=== PATIENT | female | born 1995 | race African-American/Black ===

== ENCOUNTER 2020-01-12 17:40 | Emergency (ER) | payer OTHER, SELFPAY ==
[2020-01-12 17:52] VITALS: BP 134/93; PULSE 92; RESP 12; TEMP 36.9; O2SAT 100
--- NOTE | 2020-01-12 18:17 | ED.GENADULT ---
HPI - General Adult General Chief complaint: Extremity Injury, Lower Stated complaint: lt leg pain/injury Time Seen by Provider: 01/12/20 18:18 Source: patient and RN notes reviewed Mode of arrival: ambulatory Limitations: no limitations History of Present Illness HPI narrative: 24-year-old -[place] female presents with complaints of left lower leg and ankle swelling for the past 7 days. Shania says she injured LT calf and lower leg on 01/05/20 when she fell and landed on it with leg folded under it. Since fall swelling and pain has been present up until yesterday, in which pain improved with Ibuprofen. Ibuprofen 600mg (was taking T.I.D.) until today, last dose this morning at 10:30. Shania believes swelling in LT ankle has increased over the past 24-48 hours. She says she has been packing and moving around more during this time since leg has improved. Elevation and ice with some relief. Improvement with ambulation per Shania over the past 24 hours. No redness, fever, or chills. No exacerbating factors. Denies dysuria, hematuria, and genital bleeding. No blood in stool or constipation. No cough or dyspnea. Denies chest pain, back pain, headache, and dizziness. No recent travel, long car rides. No history of DVT or PE. No foot ulceration of injury. The patient reports he have not been diagnosed with COVID-19. The patient reports he is not waiting for the results of a COVID-19 lab test. The patient reports he do not have fever, chills, weakness, or fatigue. The patient reports he do not have a new or worsening cough or shortness of breath. Denies chest pain. The patient reports he do not have any rhinorrhea, congestion, sore throat, loss of taste, nausea, vomiting, and diarrhea. Tolerating po intake well. Denies recent traveling. Denies concerns for COVID-19 or exposures been home since [id number] order except for essential household needs and return home. At this time, patient is not suspected of having COVID-19. Some parts of this dictation were generated by voice recognition software and may contain typographical and/or grammatical inaccuracies. Related Data Home Medications Medication Instructions Recorded Confirmed norgestimate-ethinyl estradiol tablet 01/12/20 [Sprintec (28)] Allergies Allergy/AdvReac Type Severity Reaction Status Date / Time No Known Allergies Allergy Verified 01/12/20 17:51 Review of Systems Review of Systems: Narrative: CONSTITUTIONAL: Denies fever, chills, sweats. EYES: Denies visual changes, redness, discharge. ENT: Denies rhinorrhea, congestion, sore throat, otalgia. CARDIOVASCULAR: Denies chest pain, palpitations, edema. RESPIRATORY: Denies dyspnea, wheezing, cough. GASTROINTESTINAL: Denies abdominal pain, nausea, vomiting, diarrhea. GENITOURINARY: Denies dysuria, hematuria, abnormal discharge. SKIN: Denies rash or itching. MUSCULOSKELETAL: Denies acute back pain or myalgia. Complains of left lower leg and ankle swelling. NEUROLOGIC: Denies numbness or focal weakness. PSYCHIATRIC: Denies anxiety or depression. All other systems reviewed are negative, except as documented in HPI and below. [facility] Past Medical History Medical History (Updated 01/14/20 @ 01:03 by KENDALL Berry) History of lumbar puncture Low folic acid Surgical History Surgical History (Updated 01/14/20 @ 01:04 by KENDALL Berry) No significant past surgical history Family History Family History (Updated 01/14/20 @ 01:06 by KENDALL Berry) Father Unknown family medical history Mother Asthma Heart disease Hypothyroidism Social History Social History (Updated 01/14/20 @ 01:07 by KENDALL Berry) Smoking status: Former smoker Tobacco type: cigarettes Second hand tobacco smoke exposure: Yes (marijuana) Alcohol intake: current Substance use: never Living arrangements: with family Occupation/Education: occupation Gender identity (i
== END 2020-01-12 18:42 | disposition home or self-care (01) ==
PROVIDERS: Emergency Provider Nurse Practitioner Family
DX: S96.912A Strain of unspecified muscle and tendon at ankle and foot level, left foot, initial encounter (principal); S86.912A Strain of unspecified muscle(s) and tendon(s) at lower leg level, left leg, initial encounter; W19.XXXA Unspecified fall, initial encounter; Z87.891 Personal history of nicotine dependence
CPT/HCPCS: 99203; G0463

== ENCOUNTER 2020-01-18 17:07 | Emergency (ER) | payer OTHER, SELFPAY ==
--- NOTE | ~2020-01-18 | XR_ITS ---
EXAMINATION: XR tibia fibula LT 2V EXAM DATE: 01/18/2020 19:32 INDICATION: Fall, proximal tibial pain for 2 weeks. Initial encounter. TECHNIQUE: Left tibia/fibula frontal and lateral projections obtained and reviewed. There is no prio r study for comparison. FINDINGS: Left tibial and fibular shafts unremarkable. No periosteal reaction to suggest subacute fr acture. There are no acute fractures or dislocations identified. There is no subcutaneous gas. T he soft tissue is unremarkable. There are no radiopaque foreign bodies. IMPRESSION: 1. Unremarkable left tibia/fibula exam. Reviewed, dictated and finalized at location A.
[2020-01-18 18:04] VITALS: BP 146/106; PULSE 102; RESP 16; TEMP 36.2; O2SAT 100
[2020-01-18 19:31] VITALS: BP 142/97; PULSE 99; RESP 16; O2SAT 99
[2020-01-18 19:51] LABS: Prothrombin Time 13.1 Seconds (11.1-14.7)
[2020-01-18 19:52] LABS: Partial Thromboplastin Time 26.1 SECONDS (22.3-36.8)
[2020-01-18 19:53] LABS: Anion Gap 8 mmol/L (8-16); Blood Urea Nitrogen 12 mg/dL (7-17); Carbon Dioxide 25 mmol/L (22-30); Chloride 104 mmol/L (98-107); Estimated CRCL calculation 136 ml/min; Estimated Glomerular Filt Rate > 60; Glucose 97 mg/dL (65-105); Potassium 4.3 mmol/L (3.4-5.0); Sodium 137 mmol/L (137-145)
[2020-01-18 20:08] LABS: D Dimer 8.62 ug/mL (<0.48)
[2020-01-18 20:23] LABS: Basophils Percent Auto 0.3 % (0.2-1.2); Eosinophils Absolute Auto 0.3 K/mm3 (0-0.3); Eosinophils Percent Auto 4.5 % (0-4.4); Hematocrit 37.9 % (37.0-47.0); Hemoglobin 12.6 g/dL (12.0-15.0); Immature Granulocyte Absolute 0.03 K/mm3 (0.00-0.031); Immature Granulocyte Percent A 0.4 % (0-0.5); Lymphocytes Absolute Auto 2.57 K/mm3 (0.9-3.2); Lymphocytes Percent Auto 35.8 % (18.3-44.2); Mean Corpuscular HGB Conc 33.2 g/dl (32-36); Mean Corpuscular Hemoglobin 28.9 pg (26-34); Mean Corpuscular Volume 86.9 fl (80-100); Mean Platelet Volume 9.7 fl (7.4-10.4); Monocytes Absolute Auto 0.4 K/mm3 (0.1-0.6); Monocytes Percent Auto 5.4 % (2.6-8.5); Neutrophils Absolute Auto 3.8 K/mm3 (1.3-6.7); Neutrophils Percent Auto 53.6 % (45.5-73.1); Platelet Count Result 210 k/mm3 (150-375); Red Blood Count 4.36 M/mm3 (4.2-5.4); Red Cell Distribution Width 12.9 % (11.5-14.5); White Blood Count 7.2 K/mm3 (4.5-10.0)
--- NOTE | 2020-01-18 20:26 | ED.LOWEXIN ---
HPI - Extremity Injury (Lower) General Chief Complaint: Extremity Injury, Lower Stated Complaint: Fall, L leg injury Time Seen by Provider: 01/18/20 19:14 Source: RN notes reviewed History of Present Illness HPI Narrative: Patient presents emergency department from home for left calf pain. Patient states approximately 2 weeks ago she fell with her left leg twisting up behind her right leg. States the following that she had pain in her left posterior and lateral calf that radiate up into her posterior knee. States she was initially seen in urgent care and started on ibuprofen with improvement of the pain. Patient states pain was improved until the pain came back today. Patient states the pain is worse in her left posterior calf with swelling in the calf. She denies any pain in her knee or ankle full range of motion of both. She is on control but denies any history of blood clots and denies tobacco use. She denies any fevers or chills chest pain shortness of breath or any other symptoms denies any new trauma Related Data Home Medications Medication Instructions Recorded Confirmed norgestimate-ethinyl estradiol tablet 01/12/20 [Sprintec (28)] Allergies Allergy/AdvReac Type Severity Reaction Status Date / Time No Known Allergies Allergy Verified 01/18/20 18:10 Review of Systems Review of Systems: Narrative: Gen.: Denies fevers or chills Respiratory: Denies shortness of breath CV: Denies chest pain or palpitations GI: Denies abdominal pain nausea, emesis denies Musculoskeletal: See HPI Neuro: Denies numbness, tingling, weakness or focal weakness Skin: Denies rash Except as documented, all other systems reviewed and negative [facility] Past Medical History Medical History History of lumbar puncture Low folic acid Surgical History Surgical History (Updated 01/14/20 @ 01:04 by KENDALL Berry) No significant past surgical history Family History Family History (Updated 01/14/20 @ 01:06 by KENDALL Berry) Father Unknown family medical history Mother Asthma Heart disease Hypothyroidism Social History Social History Smoking status: Former smoker Tobacco type: cigarettes Second hand tobacco smoke exposure: Yes (marijuana) Alcohol intake: current Substance use: never Gender identity (if verbalized by the patient): Female Exam Narrative: Exam Narrative: APPEARANCE: No acute distress, nontoxic, resting in bed Eyes: EOMI HEENT: Normocephalic, atraumatic, RESPIRATORY: No respiratory distress MUSCULOSKELETAl: Tender palpation of her left posterior calf with swelling present, no tenderness of the left knee or ankle full range of motion of both dorsalis pedis pulse 2+ neurovascular intact NEURO: Awake and alert. Following commands, speech normal, no focal deficits SKIN:: Warm, dry. Normal Color no rash or lesions Course Course Emergency Course: Called and discussed with patient's primary care physician Ary Angulo at [phone]. Agrees with plan with patient receive Lovenox in a.m. ultrasound Discussed with patient results of workup and diagnosis. Discussed need for follow-up with primary care, proper use of medication, and reasons to return to the emergency department. Patient understands and agrees to current treatment plan Vital Signs Vital signs: Vital Signs Temperature 97.2 F L 01/18/20 18:04 Pulse Rate 102 H 01/18/20 18:04 Respiratory Rate 16 01/18/20 18:04 Blood Pressure 146/106 H 01/18/20 18:04 Pulse Oximetry 100 01/18/20 18:04 Temperature 97.2 F L 01/18/20 18:04 Pulse Rate 99 01/18/20 19:31 Respiratory Rate 16 01/18/20 19:31 Blood Pressure 142/97 H 01/18/20 19:31 Pulse Oximetry 99 01/18/20 19:31 MDM - Extremity Injury (Lower) Lab Data Result diagrams: 01/18/20 19:35 01/18/20 19:
[2020-01-18] MEDS: ENOXAPARIN 120 MG/0.8 ML SYRINGE 131 MG SUB-Q (20:38)
[2020-01-18 20:55] VITALS: BP 142/92; PULSE 89; RESP 18; O2SAT 98
== END 2020-01-18 21:02 | disposition home or self-care (01) ==
PROVIDERS: Emergency Provider Emergency Medicine
DX: M79.662 Pain in left lower leg (principal); Z87.891 Personal history of nicotine dependence
CPT/HCPCS: 36415; 73590; 80048; 81025; 85025; 85380; 85610; 85730; 96372; 99283; J1650

== ENCOUNTER 2020-01-19 07:56 | Outpatient (CLI) | payer OTHER, SELFPAY ==
--- NOTE | ~2020-01-19 | US_ITS ---
US venous doppler [facility] DATE: 01/19/2020 08:42 INDICATION: Calf pain TECHNIQUE: Real-time and color flow imaging and Doppler analysis COMPARISON: None FINDINGS: The left greater saphenous vein is patent. There is spontaneous and phasic flow in the left common femoral vein. The deep femoral vein is patent. There is thrombosis of the left femoral vein, with no compression. Thrombus is identified within the left popliteal vein, with incomplete compressi on. The left peroneal veins are thrombosed, with no flow and with no compression. The posterior tibia l veins are patent. Thrombus is identified within the left gastrocnemius vein. IMPRESSION: Deep venous thrombosis involving left femoral, popliteal and peroneal veins Dr. Munoz informed emergency room physician Dr. Durant of the deep venous thrombosis on 01/19/[address] Munoz then reported the finding to Dr. Ary Angulo at [address] Liu s' direction. Reviewed, dictated and finalized at Location [facility]. Reviewed, dictated and finalized at location A. IMPRESSION: Deep venous thrombosis involving left femoral, popliteal and perone al veins Dr. Munoz informed emergency room physician Dr. Durant of the deep venous throm bosis on 01/19/[address] Munoz then reported the finding to Dr. Ary Angulo at [address] Durant' direction.
== END 2020-01-19 07:57 | disposition home or self-care (01) ==
DX: M79.662 Pain in left lower leg (principal); I82.412 Acute embolism and thrombosis of left femoral vein; I82.452 Acute embolism and thrombosis of left peroneal vein
CPT/HCPCS: 93971

== ENCOUNTER 2021-01-10 17:41 | Emergency (ER) | payer OTHER, SELFPAY ==
[2021-01-10] VITALS (8 sets, daily range): BP systolic 126–155; BP diastolic 91–94; PULSE 92–104; RESP 14–23; TEMP 37.1; O2SAT 96–100
--- NOTE | ~2021-01-10 | XR_ITS ---
EXAMINATION: XR chest 2V DATE: 01/10/2021 18:37 INDICATION: Midsternal chest pain. TECHNIQUE: Frontal and lateral views of the chest were obtained. COMPARISON: None. FINDINGS: The chest demonstrates clear lungs without pneumonia, pleural effusion, or pneumothorax. Th e heart size is normal. IMPRESSION: 1. No acute cardiopulmonary disease. Reviewed, dictated and finalized at location A.
--- NOTE | 2021-01-10 17:44 | ECG_ITS ---
Measurements Intervals [place] Rate: 92 P: 32 [place]: 135 QRS: 22 QRSD: 94 T: -3 QT: 347 QTc: 431 Interpretive Statements SINUS RHYTHM NONSPECIFIC T-WAVE ABNORMALITY- ANT/INF LEADS BORDERLINE ECG Electronically Signed On 01-10-2021 20:13:50 CDT by Randolph Villalta D.O.
[2021-01-10 19:01] LABS: Basophils Absolute Auto 0.1 K/mm3 (0.0-0.1); Basophils Percent Auto 0.6 % (0.2-1.2); Eosinophils Absolute Auto 0.5 K/mm3 (0-0.3); Eosinophils Percent Auto 6.3 % (0-4.4); Hematocrit 38.6 % (37.0-47.0); Hemoglobin 12.3 g/dL (12.0-15.0); Immature Granulocyte Absolute 0.07 K/mm3 (0.00-0.031); Immature Granulocyte Percent A 0.8 % (0-0.5); Lymphocytes Absolute Auto 4.09 K/mm3 (0.9-3.2); Lymphocytes Percent Auto 48.5 % (18.3-44.2); Mean Corpuscular HGB Conc 31.9 g/dl (32-36); Mean Corpuscular Hemoglobin 28.8 pg (26-34); Mean Corpuscular Volume 90.4 fl (80-100); Mean Platelet Volume 9.9 fl (7.4-10.4); Monocytes Absolute Auto 0.6 K/mm3 (0.1-0.6); Monocytes Percent Auto 7.5 % (2.6-8.5); Neutrophils Absolute Auto 3.1 K/mm3 (1.3-6.7); Neutrophils Percent Auto 36.3 % (45.5-73.1); Nucleated Red Blood Cells Perc 0.4 % (0.0-0.2); Platelet Count Result 239 k/mm3 (150-375); Red Blood Count 4.27 M/mm3 (4.2-5.4); Red Cell Distribution Width 14.3 % (11.5-14.5); White Blood Count 8.4 K/mm3 (4.5-10.0)
[2021-01-10 19:09] LABS: Anion Gap 8 mmol/L (8-16); Blood Urea Nitrogen 10 mg/dL (7-17); Carbon Dioxide 23 mmol/L (22-30); Chloride 106 mmol/L (98-107); Estimated CRCL calculation 156 ml/min; Estimated Glomerular Filt Rate > 60; Glucose 84 mg/dL (65-110); Potassium 4.2 mmol/L (3.4-5.0); Sodium 137 mmol/L (137-145)
[2021-01-10 19:17] LABS: INR 0.9; Partial Thromboplastin Time 26.6 SECONDS (22.3-36.8); Prothrombin Time 12.4 Seconds (11.1-14.7)
[2021-01-10 19:21] LABS: Troponin I < 0.012 ng/mL (0.000-0.034)
[2021-01-10 19:24] LABS: D Dimer 0.27 ug/mL (<0.48)
--- NOTE | 2021-01-10 19:40 | ED.CHESTPAIN ---
HPI - Chest Pain General Chief Complaint: Chest Pain Stated Complaint: Chest tightness,hoarseness Time Seen by Provider: 01/10/21 18:00 Source: patient Mode of arrival: ambulatory Limitations: no limitations History of Present Illness HPI narrative: 25-year-old with a history of DVTs in the past here with complaints of intermittent chest pain since this morning. She states that she has been having sinus drainage for which she has been taking Claritin. She is worried that she could be having PE. She presently has no shortness of breath. Has occasional cough. No history of nausea vomiting or fever. MD complaint: chest pain Onset (ago): day(s) (1) Timing of current episode: episodic Prior episodes: No Pain location: substernal Pain radiation: none Quality: heaviness Relieving factors: nothing Treatment prior to arrival: none Risk Factors Coronary artery disease risk factors: none Pulmonary embolism risk factors: history of deep vein thrombosis Related Data On Oral Contraceptives: No Home Medications Medication Instructions Recorded Confirmed norgestimate-ethinyl estradiol tablet 01/12/20 [Sprintec (28)] Allergies Allergy/AdvReac Type Severity Reaction Status Date / Time No Known Allergies Allergy Verified 01/18/20 18:10 Review of Systems Review of Systems: All systems reviewed & are unremarkable except as noted in HPI and below Constitutional: Constitutional: Reports no additional constitutional complaints Eyes: Eyes: Reports no additional eye complaints ENT: Reports sinus pain Cardiovascular: Cardiovascular: Reports as per HPI Respiratory: Respiratory: Reports no additional respiratory complaints Gastrointestinal: Gastrointestinal: Reports no additional gastrointestinal complaints Musculoskeletal: Musculoskeletal: Reports no additional musculoskeletal complaints [facility] Past Medical History Medical History (Updated 01/10/21 @ 19:46 by Willian Lopez MD) History of lumbar puncture Low folic acid Surgical History Surgical History No significant past surgical history Family History Family History Father Unknown family medical history Mother Asthma Heart disease Hypothyroidism Social History Social History Smoking status: Former smoker Tobacco type: cigarettes Second hand tobacco smoke exposure: Yes (marijuana) Alcohol intake: current Substance use: never Gender identity (if verbalized by the patient): Female Sexual Orientation (if Verbalized by the Patient): Straight or Heterosexual Exam Narrative: GENERAL: Well-appearing, well-nourished, and in no acute distress. HEAD: Normocephalic, atraumatic. EYES: PERRLA and EOMI. NECK: Supple. CHEST: Clear to auscultation. No respiratory distress. HEART: Regular rate and rhythm. No murmur heard. Normal peripheral pulses. ABDOMEN: Soft, nontender, nondistended, normal active bowel sounds. EXTREMITIES: Normal range of motion. No edema. SKIN: Warm, dry, no rash. NEURO: No focal deficits. Alert and oriented x3. PSYCH: Normal mood and affect. Course Course Emergency Course: Patient comfortably sitting on the stretcher in no discomfort she had no further episodes of chest pain. I informed her about her EKG lab work and x-ray findings. Advised her to continue Claritin for her sinus drainage. And follow-up with her primary doctor. Vital Signs Vital signs: Vital Signs Temperature 37.1 C 01/10/21 17:59 Pulse Rate 92 01/10/21 17:59 Respiratory Rate 18 01/10/21 17:59 Blood Pressure 155/91 H 01/10/21 17:59 Pulse Oximetry 98 01/10/21 17:59 Temperature 37.1 C 01/10/21 17:59 Pulse Rate 104 H 01/10/21 19:30 Respiratory Rate 14 01/10/21 19:16 Blood Pressure 155/91 H 01/10/21 18:01 Pulse Oximetry 100 01/10/21 19:16 MDM - Chest Jagruti
[2021-01-10 20:59] LABS: Troponin I < 0.012 ng/mL (0.000-0.034)
== END 2021-01-10 21:15 | disposition home or self-care (01) ==
PROVIDERS: Emergency Provider Family Medicine
DX: R07.89 Other chest pain (principal); Z86.718 Personal history of other venous thrombosis and embolism; Z87.891 Personal history of nicotine dependence; R94.31 Abnormal electrocardiogram [ECG] [EKG]
CPT/HCPCS: 36415; 71046; 80048; 84484; 85025; 85380; 85610; 85730; 93005; 99284